=== PATIENT | female | born 1955 | race Caucasian/White ===

== ENCOUNTER 2016-10-22 20:52 | Emergency (ER) | payer OTHER ==
[2016-10-22 21:18] VITALS: RESP 18; TEMP 98.1
--- NOTE | 2016-10-22 21:55 | CPEKG ---
Heart Rate: 50 RR Interval: 1200 P-R Interval: 208 QRSD Interval: 80 QT Interval: 440 QTC Interval: 402 P [place]: 45 QRS [place]: 6 T Wave [place]: 33 EKG Severity - NORMAL ECG - EKG Impression: SINUS RHYTHM Electronically Signed By: Bigg Lundy 22-Oct-2016 23:55:29
[2016-10-22] MEDS ORDERED: ALBUTEROL INH PREPACK MDI TAKEHOME ONE (22:29)
[2016-10-22] MEDS ORDERED: AZITHROMYCIN 250 MG TAB PO ONE (22:29)
--- NOTE | 2016-10-22 22:45 | UCPHY ---
H & P Time Seen by Provider: 10/22/16 21:34 Patient Type: New HPI/ROS: This patient reports a cough of 2 weeks duration initially productive of green sputum now dry cough over the past week this ongoing not improving. She has in achy chest wall that she describes as sore ribs. She also describes a slight pressure and she is not certain if this is bronchial or something deeper her chest. She does have associated wheezing. She has mild dyspnea at times. She has a history of previous bronchitis with similar symptoms. ROS: No high fevers or chills. No other constitutional symptoms. No significant fatigue. HEENT: No nasal congestion. No sore throat. No headache. Pulmonary: No pleuritic pain. No respiratory distress. Cardiovascular : No diaphoresis. No lightheaded numbness or heart palpitations. No leg swelling or calf pain. GI: No nausea or vomiting. 10 point ROS is otherwise negative. Past Medical/Surgical History: Family history of a father who of a AAA Smoking Status: Former smoker Physical Exam: Physical Exam Vital signs are normal. General: No acute distress HEENT: Nose: Clear discharge bilaterally. No sinus tenderness to percussion. Ears: External canals and tympanic membranes are clear with no erythema or abnormal findings bilaterally. Oropharynx: No erythema or exudates. No dysphonia. No drooling or stridor. Eyes: Pupils equal and react to light. Extraocular motions are intact. Lungs: Mild expiratory wheeze bilaterally. No rales. Minimal rhonchi. She has anterior chest wall tenderness the largely reproduces her discomfort. Cardiac: Regular rate and rhythm with no murmur gallop or rub no leg swelling or tenderness. No JVD. Skin: No rash or pallor. Neuro: Alert with no focal deficits noted. Initial differential diagnosis: Bronchitis with chest wall pain, rule out gross cardiac abnormality, pneumonia Constitutional: Initial Vital Signs Temperature (C) 36.7 C 10/22/16 21:16 Heart Rate 60 10/22/16 21:16 Respiratory Rate 18 10/22/16 21:16 Blood Pressure 146/64 H 10/22/16 21:16 O2 Sat (%) 96 10/22/16 21:16 O2 Delivery Mode Room Air Allergies/Adverse Reactions: fluorescein Allergy (Verified 10/22/16 21:14) Home Medications: Medication Instructions Recorded Azithromycin [Zithromax] 250 mg PO DAILY #4 tab 10/22/16 Guaifenesin/Codeine Phosphate 5 - 10 ml PO Q6 PRN #120 ml 10/22/16 [Guaifenesin-Codeine Liquid] traZODone 10/22/16 MDM/Departure - MDM Diagnostics: EKG indication chest pain Sinus rhythm at 50 overall assessment normal EKG. for complete read please refer to trace master Medications Given: Discontinued Medications Albuterol Sulfate (Proventil Inh Prepack) 1 mdi TAKEHOME EDNOW ONE Stop: 10/22/16 22:30 Last Admin: 10/22/16 22:49 Dose: 1 mdi Azithromycin (Zithromax) 500 mg PO EDNOW ONE PRN Reason: Protocol Stop: 10/22/16 22:30 Last Admin: 10/22/16 22:38 Dose: 500 mg ED Course/Re-evaluation: I counseled the patient regarding bronchitis. She is given a 1st dose of Zithromax and discharged with an albuterol inhaler. I think the source of her chest discomfort is chest wall pain from strain from her coughing for 2 weeks. She understands the need to follow up with primary care physician for any ongoing symptoms good the emergency department she develops any significant worsening or change in her chest pain - Depart Disposition: Home, Routine, Self-Care Clinical Impression: Chest wall pain Condition: Good Instructions: Acute Bronchitis (ED), Chest Wall Pain (ED) Additional Instructions: Diagnoses: 1. Chest wall pain 2. Acute bronchitis Plan: Humidifier Albuterol inhaler with spacer for cough, wheeze or shortness of breath Guaifenesin with codeine for cough prevents sleep at night Ibuprofen Tylenol for chest wall pain as needed Zithromax antibiotic Return for any significant worsening despite treatment plan or go to the emergency department Prescriptions: Azithromycin [Zithromax] 250 mg PO DAILY #4 tab Guaifenesin/Codeine Phosphate [Guaifenesin-Codeine Liquid] 5 - 10 ml PO Q6 PRN # 120 ml PRN Reason: Cough Referrals: NONE *PRIMARY CARE P,. [Primary Care Provider] - As per Instructions - PQRS PQRS Measurement: NA
[2016-10-22 22:54] VITALS: BP 135/87; PULSE 72; O2SAT 95
== END 2016-10-22 22:57 | disposition home or self-care (01) ==
LOC: CED 20:52
DX: R07.89 Other chest pain (principal); J20.9 Acute bronchitis, unspecified; Z87.891 Personal history of nicotine dependence; Z82.49 Family history of ischemic heart disease and other diseases of the circulatory system
CPT/HCPCS: 93010-PO; 99204-PO; G0463-PO

== ENCOUNTER → 2018-06-05 | Outpatient (CLI) | payer OTHER | LOC: BMCIMAGING 13:32 | PROVIDERS: ATTEND Nurse Practitioner Obstetrics & Gynecology | DX: Z13.820 Encounter for screening for osteoporosis (principal); Z78.0 Asymptomatic menopausal state; M81.0 Age-related osteoporosis without current pathological fracture ==